=== PATIENT | male | born 1980 | race Caucasian/White ===

== ENCOUNTER 2021-03-17 23:29 | Emergency (ER) | payer BC ==
[~2021-03-17] VITALS: Ht 182.9 cm; Wt 106.8 kg
[2021-03-18 00:51] VITALS: BP 132/74; PULSE 70; TEMP 97.4
== END 2021-03-18 00:51 | disposition home or self-care (01) ==
LOC: COL.ER 23:29
DX: L50.9 Urticaria, unspecified (principal)
CPT/HCPCS: J1200; J2930

== ENCOUNTER 2023-08-03 14:20 | Emergency (ER) | payer BC ==
[~2023-08-03] VITALS: Ht 182.9 cm; Wt 127.3 kg
[2023-08-03 14:31] VITALS: BP 136/82; TEMP 98.8
[2023-08-03] MEDS ORDERED: PREDNISONE10 MG PO (15:44)
[2023-08-03] MEDS ORDERED: predniSONE 20 MG TAB PO ONE (15:45)
[2023-08-03] MEDS ORDERED: LIDEX CR 15GM TP (15:45)
[2023-08-03 15:59] VITALS: PULSE 62
== END 2023-08-03 16:00 | disposition home or self-care (01) ==
LOC: COL.ER 14:20
DX: L20.9 Atopic dermatitis, unspecified (principal)
CPT/HCPCS: J7512